=== PATIENT | male | born 1955 | race Caucasian/White ===

== ENCOUNTER 2018-01-23 12:14 | Observation (INO) | payer OTHER ==
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
[2018-01-23] MEDS ORDERED: ONDANSETRON DISINTEGRATING 4 MG TAB PO PRN (15:00)
[2018-01-23] MEDS ORDERED: ACETAMINOPHEN 325 MG TAB PO PRN (15:00)
[2018-01-23] MEDS ORDERED: ONDANSETRON 4 MG/2 ML VIAL IVP PRN (15:00)
[2018-01-23] MEDS ORDERED: D50W 25 GM/50 ML SYR IVP PRN (15:02)
[2018-01-23] MEDS ORDERED: BISACODYL 10 MG SUPP PR PRN (15:03)
[2018-01-23] MEDS ORDERED: MAGNESIUM HYDROXIDE 30 ML UDCUP PO PRN (15:03)
[2018-01-23] MEDS ORDERED: POLYETHYLENE GLYCOL 3350 17 GM PKT PO PRN (15:03)
[2018-01-23] MEDS ORDERED: LACTULOSE 20 GM/30 ML UDCUP PO PRN (15:03)
[2018-01-23 15:30] LABS: PLATELET COUNT 148 10^3/uL (150-400)
[2018-01-23] MEDS ORDERED: INSULIN LISPRO 100 UNIT/ML SC SCH (18:00)
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
[2018-01-23] MEDS: DOCUSATE SODIUM 100 MG CAP PO SCH (21:28)
[2018-01-23] MEDS: INSULIN LISPRO 100 UNIT/ML SC SCH (21:28)
--- NOTE | 2018-01-23 22:32 | SOAPPROG ---
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
[2018-01-24 05:24] LABS: PLATELET COUNT 154 10^3/uL (150-400)
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
[2018-01-24] MEDS: DOCUSATE SODIUM 100 MG CAP PO SCH (08:36)
[2018-01-24] MEDS ORDERED: ATORVASTATIN CALCIUM 40 MG TAB PO SCH (09:00)
[2018-01-24] MEDS ORDERED: LOSARTAN POTASSIUM 50 MG TAB PO SCH (09:00)
[2018-01-24] MEDS: INSULIN LISPRO 100 UNIT/ML SC SCH ×2 (10:06→16:15)
[2018-01-24] MEDS ORDERED: IOPAMIDOL (ISOVUE 370) 100 ML BTL IV ONE (11:46)
--- NOTE | 2018-01-24 15:42 | ASMTCMCOM ---
CM Note CM Note Notes: CM spoke with primary RN - anticipate a d/c home without needs. Case Management available should something change. Plan: Home Independent Date Signed: 01/24/2018 03:42 PM Electronically Signed By:Peggy Pink RN
[2018-01-24 15:44] VITALS: BP 129/77
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
== END 2018-01-24 16:54 | disposition home or self-care (01) ==
LOC: INTOOBSV 14:09 → F3E 14:09
PROVIDERS: ADMIT Internal Medicine; ATTEND Internal Medicine
DX: S36.031A Moderate laceration of spleen, initial encounter (principal); V18.0XXA Pedal cycle driver injured in noncollision transport accident in nontraffic accident, initial encounter; Y93.55 Activity, bike riding; D62 Acute posthemorrhagic anemia; R91.1 Solitary pulmonary nodule; E10.9 Type 1 diabetes mellitus without complications; I10 Essential (primary) hypertension
CPT/HCPCS: G0378; J1815; Q9967